=== PATIENT | male | born 1945 | race Caucasian/White ===

== ENCOUNTER 2021-04-07 04:26 | Emergency (ER) | payer MEDICARE, BC, SELFPAY ==
[2021-04-07 04:27] VITALS: BP 161/100; PULSE 93; RESP 16; TEMP 36.4; O2SAT 97; BMI 26.8
--- NOTE | 2021-04-07 04:33 | EDS_ITS ---
HPI History of Present Illness Chief Complaint: Complaint Pain Onset: Today Context: Gradual Onset Timing: Continuous Worsened by: Nothing Relieved by: Nothing Related History Enlarged Prostate: Yes Narrative Narrative: Patient presents with urinary retention that began earlier this morning. Patient states he was able to void at approximately 12:30 AM. Patient states he woke up a couple hours ago when had difficulty voiding at that time. Patient states he has been feeling increasing pressure in his suprapubic area since that time. Patient denies any fevers or chills. Patient denies any dysuria or hematuria. Patient denies any back pain. [facility] Medical History (Updated 04/07/21 @ 05:[address] Leonardo Lyon DO) Benign prostatic hyperplasia Home Medications finasteride 5 mg PO DAILY 09/08/14 [History Last Taken 09/21/14 04:30] Allergy/AdvReac Type Severity Reaction Status Date / Time Penicillins Allergy Rash Verified 04/07/21 04:30 Surgical History (Updated 04/07/21 @ 04:[address] Leonardo Lyon DO) Hx of arthroscopic knee surgery Hx of lumbar discectomy Social History Smoking Status: Former smoker ROS ROS ED Constitutional Constitutional ED: Denies chills or fever(s) Eyes Eyes: Denies blurry vision or change in vision ENT ENT ED: Denies rhinorrhea or sore throat Cardiovascular Cardiovascular: Denies chest pain or palpitations Respiratory/Chest Respiratory/Chest: Denies cough or dyspnea Gastrointestinal Gastrointestinal: Denies nausea or vomiting Genitourinary Genitourinary ED: Denies dysuria or hematuria Musculoskeletal Musculoskeletal: Denies back pain or neck pain Integumentary Denies abscess or rash Neurologic Neurologic: Denies headache(s) or weakness Allergic/Immunologic Allergic/Immunologic ED: Denies mouth swelling or urticaria EXAM Physical Exam Const Vital Signs: 04/07/21 04:27 Temperature 97.6 F L Temperature Source Oral Pulse Rate 93 Respiratory Rate 16 Blood Pressure 161/100 H Blood Pressure Mean 120 Pulse Ox 97 Oxygen Delivery Method Room Air Positive well nourished and well developed General Appearance ED: well developed HEENT Reports moist mucous membranes Neck supple and no JVD Resp normal respiratory effort and clear to auscultation bilaterally Cardio regular rate, regular rhythm and no murmurs GI normal to inspection, nondistended, normoactive bowel sounds, non-tender and non-distended GI Narrative: Bladder is mildly distended. Auscultation: normoactive bowel sounds Palpation: soft Penis: normal penis and circumcised Extremity normal to inspection General Extremety ED: Negative for edema or tenderness General Extremity: Negative for edema Neuro oriented x3, CN's II-XII intact bilaterally and no sensory deficits noted Sensorium / Orientation: alert Motor Exam: strength 5/5 throughout Psych mental status grossly normal Skin no rashes or lesions noted MDM MDM MDM Narrative Medical decision making narrative: Ha catheter was placed. There is good urinary output. Patient feels better after this. Urinalysis was obtained. There is no evidence of urinary tract infection. Patient was given a leg bag. Patient was instructed to follow-up with his primary care physician in 2 days for catheter removal. Patient understood and was agreeable with the plan. All questions were answered. Lab Data Attestation: I reviewed the patient's lab results. Labs: Laboratory Results - last 24 hr 04/07/21 04:38 Urine Color Yellow Urine Clarity Clear Urine pH 7.0 Ur Specific [place] 1.010 Urine Protein Negative Urine Glucose (UA) Normal Urine Ketones Negative Urine Occult Blood 25 H Urine Nitrite Negative Urine Bilirubin Negative Urine Urobilinogen Normal Ur Leukocyte Esterase Negative Discharge Plan Triage Chief Complaint: Complaint ED Provider: Leonardo Lyon Dx/Rx/DC Orders Clinical Impression: Acute urinary retention Instructions: ED Ha Catheter, Care, ED Urinary Retention, Male Prescriptions: No Action finasteride 5 MG tablet 5 mg PO DAILY RF: 0 Primary Care Provider: Nilsa Coulter Referrals: Nilsa Coulter MD [Primary Care Provider] - 2 Days Disposition Disposition: Home, Self Care
[2021-04-07 04:43] LABS: Bacteria 0 SEEN /hpf (None Seen); Mucous, Urine 0 SEEN /hpf (<or=2+); Squamous Epithelial Cells - UA 0 SEEN /hpf (0-5); White Blood Cells 0 SEEN /hpf (0-5)
[2021-04-07 04:44] LABS: Color, Urine Yellow (Yellow); Glucose, Dipstick Normal (Normal); Ketone-Dipstick Negative (Negative); Leukocyte Esterase-Dipstick Negative /ul (Negative); Nitrite-Dipstick Negative (Negative); Occult Blood-Urine 25 /ul (Negative); Protein-Dipstick Negative (Negative); Urine Bilirubin Dipstick Negative (Negative); Urine Clarity Clear (Clear); Urine Urobilinogen Normal (Normal)
[2021-04-07 05:20] LABS: Red Blood Cells-Urine 0-5 SEEN /hpf (0-5)
[2021-04-07 05:39] VITALS: BP 158/64; PULSE 80; RESP 16
== END 2021-04-07 05:40 | disposition home or self-care (01) ==
LOC: ED 05:22
PROVIDERS: Emergency Provider Emergency Medicine; PCP Internal Medicine
DX: R33.8 Other retention of urine (principal); N40.1 Benign prostatic hyperplasia with lower urinary tract symptoms; Z87.891 Personal history of nicotine dependence; Z79.899 Other long term (current) drug therapy
CPT/HCPCS: 51702; 81001; 99283